=== PATIENT | male | born 1985 | race American Indian/Alaskan Native ===

== ENCOUNTER 2021-11-21 20:58 | Inpatient (IN) | payer OTHER ==
[2021-11-21] MEDS ORDERED: ALBUTEROL 2.5 MG/3 ML NEBU IH ONE (21:26)
[2021-11-21] MEDS ORDERED: IPRATROPIUM 0.02% NEBU 2.5 ML IH ONE (21:26)
[2021-11-21 21:45] LABS: Basophils # (Auto) 0.1 K/mm3 (0.0-0.1); Basophils % (Auto) 0.5 % (0.0-1.8); Eosinophils # (Auto) 0.7 K/mm3 (0.0-0.4); Eosinophils % (Auto) 5.3 % (0.0-4.3); Hematocrit 35.5 % (35.5-45.6); Hemoglobin 11.7 gm/dl (11.8-15.2); Lymphocytes # (Auto) 1.2 K/mm3 (1.2-5.4); Lymphocytes % (Auto) 9.4 % (13.4-35.0); Mean Corpuscular HGB Conc 33 % (32-34); Mean Corpuscular Volume 94 fl (84-94); Monocytes % (Auto) 8.1 % (0.0-7.3); Platelet Count 382 K/mm3 (140-440); Red Blood Count 3.76 M/mm3 (3.65-5.03); Red Cell Distribution Width 14.6 % (13.2-15.2)
[2021-11-21 21:54] LABS: INR 1.03 (0.87-1.13)
--- NOTE | 2021-11-21 22:11 | XRay Report ---
CHEST 1 VIEW INDICATION: Dyspnea. COMPARISON: 03/20/2018 FINDINGS: SUPPORT DEVICES: None. HEART: Mild cardiomegaly. LUNGS/PLEURA: Moderate patchy multifocal airspace disease in both lungs. No appreciable effusion. ADDITIONAL FINDINGS: None. IMPRESSION: 1. Lung findings as above. Signer Name: Brock Ovalles MD Signed: 11/21/2021 10:07 PM Workstation Name: [id number]
[2021-11-21 22:15] LABS: Creatine Kinase MB 4.4 ng/mL (0.0-4.0)
[2021-11-21 22:17] LABS: Albumin 3.2 g/dL (3.9-5); Calcium 8.2 mg/dL (8.4-10.2)
[2021-11-21 22:29] LABS: Chol/HDL Ratio 3.9 %
[2021-11-21] MEDS ORDERED: FUROSEMIDE 100 MG/10 ML INJ IV ONE (22:56)
[2021-11-21] MEDS ORDERED: SODIUM POLYSTYRENE 15 GM/60 ML ORAL LIQD PO ONE (22:57)
--- NOTE | 2021-11-21 23:09 | Emergency Department Report ---
ED General Adult HPI - General Chief complaint: Dyspnea/Respdistress Stated complaint: SOB PUI?: No Time Seen by Provider: 11/21/21 21:26 Source: patient Mode of arrival: Wheelchair Limitations: No Limitations - History of Present Illness Initial comments: SOB SINCE FRIDAY, STATES NO HX ASTHMA, PT REPORTS RECENT SX FOR DIALYSIS PORT ON FRIDAY ALSO. PT PULSE OX OF 85% RA AT TRIAGE, NC [address] WITH IMPROVEMENT TO 92% -: days(s) Location: chest Radiation: non-radiation Consistency: intermittent Improves with: none Worsens with: none Associated Symptoms: chest pain, cough, shortness of breath Treatments Prior to Arrival: none - Related Data Previous Rx's Medication Instructions Recorded Last Taken Type Metformin HCl [Glucophage] 500 mg PO BID #60 tablet 03/22/18 Unknown Rx NIFEdipine XL [Procardia Xl] 90 mg PO QDAY #30 tablet 03/22/18 Unknown Rx Allergies Allergy/AdvReac Type Severity Reaction Status Date / Time No Known Allergies Allergy Verified 03/21/18 04:06 ED Review of Systems ROS: Stated complaint: SOB Other details as noted in HPI Constitutional: denies: chills, fever Eyes: denies: eye pain, eye discharge, vision change ENT: denies: ear pain, throat pain Respiratory: denies: cough, shortness of breath, wheezing Cardiovascular: denies: chest pain, palpitations Endocrine: no symptoms reported Gastrointestinal: denies: abdominal pain, nausea, diarrhea Genitourinary: denies: urgency, dysuria Musculoskeletal: denies: back pain, joint swelling, arthralgia Skin: denies: rash, lesions Neurological: denies: headache, weakness, paresthesias Psychiatric: denies: anxiety, depression Hematological/Lymphatic: denies: easy bleeding, easy bruising ED Past Medical Hx - Past Medical History Hx Congestive Heart Failure: No Hx Diabetes: No Hx Pulmonary Embolism: No Hx Asthma: Yes Hx COPD: No Hx Tuberculosis: No - Social History Smoking Status: Never Smoker - Medications Home Medications: Home Medications Medication Instructions Recorded Confirmed Last Taken Type Metformin HCl [Glucophage] 500 mg PO BID #60 tablet 03/22/18 Unknown Rx NIFEdipine XL [Procardia Xl] 90 mg PO QDAY #30 tablet 03/22/18 Unknown Rx ED Physical Exam - General Limitations: No Limitations General appearance: alert, in distress - Head Head exam: Present: atraumatic, normocephalic - Eye Eye exam: Present: normal appearance - ENT ENT exam: Present: mucous membranes moist - Neck Neck exam: Present: normal inspection - Respiratory Respiratory exam: Present: rales, decreased breath sounds. Absent: respiratory distress - Cardiovascular Cardiovascular Exam: Present: regular rate, normal rhythm. Absent: systolic murmur, diastolic murmur, rubs, gallop - GI/Abdominal GI/Abdominal exam: Present: soft, normal bowel sounds - Rectal Rectal exam: Present: deferred - Extremities Exam Extremities exam: Present: normal inspection - Back Exam Back exam: Present: normal inspection - Neurological Exam Neurological exam: Present: alert, oriented X3 - Psychiatric Psychiatric exam: Present: normal affect, normal mood - Skin Skin exam: Present: warm, dry, intact, normal color. Absent: rash ED Course Vital Signs 11/21/21 11/21/21 11/21/21 21:11 21:54 22:00 Temperature 98.3 F Pulse Rate 98 H 96 H Respiratory 18 32 H 31 H Rate Blood Pressure 157/85 140/89 O2 Sat by Pulse 84 94 96 Oximetry 11/21/21 11/21/21 11/21/21 22:16 22:30 22:46 Temperature Pulse Rate 95 H 94 H 91 H Respiratory 30 H 31 H 28 H Rate Blood Pressure 142/92 148/89 132/77 O2 Sat by Pulse 98 96 96 Oximetry 11/21/21 22:56 Temperature Pulse Rate Respiratory 30 H Rate Blood Pressure O2 Sat by Pulse 96 Oximetry ED Medical Decision Making - Lab Data Result diagrams: 11/21/21 21:35 11/21/21 21:35 Critical care attestation.: If time is entered above; I have spent that time in minutes in the direct care of this critically ill patient, excluding procedure time. ED Disposition Clinical Impression: Shortness of breath, CKD (chronic kidney disease), Fluid overload Disposition: ADMITTED INPATIENT Is pt being admited?: Yes Does the pt Need Aspirin: No Condition: Stable Referrals: PRIMARY CARE, [Primary Care Provider] - 3-5 Days
[2021-11-22] MEDS ORDERED: ONDANSETRON 4 MG/2 ML INJ IV PRN ×2 (01:33→02:17)
[2021-11-22] MEDS ORDERED: ACETAMINOPHEN 325 MG TAB PO PRN ×2 (01:33→02:17)
[2021-11-22] MEDS ORDERED: MORPHINE 4 MG/1 ML INJ IV PRN (02:17)
[2021-11-22] MEDS ORDERED: MAGNESIUM HYDROXIDE (MOM) ORAL LIQD UDC PO PRN (02:17)
--- NOTE | 2021-11-22 02:25 | History and Physical Report ---
History of Present Illness Date of examination: 11/22/21 Date of admission: 11/22/2021 Chief complaint: Shortness of breath History of present illness: 36-year-old male with known history of asthma and chronic kidney disease presenting in the emergency room today with complaints of shortness of breath. He has also had some cough is nonproductive. Denies any fever, no chills, no chest pain, no headache or dizziness. Patient denies any sick contacts and no recent travel. Patient just had an AV fistula placed in the left upper arm for dialysis. Upon arrival in the emergency room today, oxygen saturation was about 85% on room air. He was subsequently placed on oxygen by nasal cannula with improvement of O2 saturation to about 92%. Work-up in the emergency room today, chest x-ray shows moderate patchy multifocal airspace disease in both lungs no appreciable effusion. Lab reveals BNP of 24,223, potassium of 5.3, total creatinine kinase of 32.4, troponin of 0.061 Past History Past Medical History: diabetes, ESRD, hypertension, other (Asthma) Past Surgical History: Other (AV fistula placement) Social history: no significant social history Family history: no significant family history Medications and Allergies Allergies Allergy/AdvReac Type Severity Reaction Status Date / Time No Known Allergies Allergy Verified 03/21/18 04:06 Home Medications Medication Instructions Recorded Confirmed Last Taken Type Metformin HCl [Glucophage] 500 mg PO BID #60 tablet 03/22/18 Unknown Rx NIFEdipine XL [Procardia Xl] 90 mg PO QDAY #30 tablet 03/22/18 Unknown Rx Active Meds: Active Medications Acetaminophen (Acetaminophen 325 Mg Tab) 650 mg PO Q4H PRN PRN Reason: Pain MILD(1-3)/Fever >100.5/HERNÁNDEZ Acetaminophen (Acetaminophen 325 Mg Tab) 650 mg PO Q4H PRN PRN Reason: Pain MILD(1-3)/Fever >100.5/HERNÁNDEZ Heparin Sodium (Porcine) (Heparin 5,000 Unit/1 Ml Vial) 5,000 unit SUB-Q Q8HR KWESI Magnesium Hydroxide (Magnesium Hydroxide (Mom) Oral Liqd Udc) 30 ml PO Q4H PRN PRN Reason: Constipation Morphine Sulfate (Morphine 2 Mg/1 Ml Inj) 2 mg IV Q4H PRN PRN Reason: Pain, Moderate (4-6) Morphine Sulfate (Morphine 4 Mg/1 Ml Inj) 4 mg IV Q4H PRN PRN Reason: Pain , Severe (7-10) Ondansetron HCl (Ondansetron 4 Mg/2 Ml Inj) 4 mg IV Q8H PRN PRN Reason: Nausea And Vomiting Ondansetron HCl (Ondansetron 4 Mg/2 Ml Inj) 4 mg IV Q8H PRN PRN Reason: Nausea And Vomiting Sodium Chloride (Sodium Chloride 0.9% 10 Ml Flush Syringe) 10 ml IV BID KWESI Sodium Chloride (Sodium Chloride 0.9% 10 Ml Flush Syringe) 10 ml IV PRN PRN PRN Reason: LINE FLUSH Sodium Chloride (Sodium Chloride 0.9% 10 Ml Flush Syringe) 10 ml IV BID KWESI Sodium Chloride (Sodium Chloride 0.9% 10 Ml Flush Syringe) 10 ml IV PRN PRN PRN Reason: LINE FLUSH Review of Systems Constitutional: no fever, no chills Ears, nose, mouth and throat: no nasal congestion, no sore throat Cardiovascular: no chest pain, no palpitations Respiratory: shortness of breath, dyspnea on exertion, no cough Gastrointestinal: no abdominal pain, no nausea, no vomiting, no diarrhea Genitourinary Male: no dysuria, no hematuria, no flank pain, no nocturia Musculoskeletal: no neck pain, no low back pain Integumentary: no rash, no pruritis Neurological: no headaches, no confusion Psychiatric: no anxiety, no depression Endocrine: no polyphagia, no polydipsia, no polyuria, no nocturia Exam - Constitutional Vitals: Temp Pulse Resp BP Pulse Ox 98.3 F 99 H 31 H 157/87 90 11/21/21 21:11 11/22/21 02:00 11/22/21 02:00 11/22/21 02:00 11/22/21 02:00 General appearance: Present: mild distress, obese - EENT Eyes: Present: PERRL, EOM intact. Absent: scleral icterus ENT: hearing intact, clear oral mucosa, dentition normal - Neck Neck: Present: supple, normal ROM, masses or JVD. Absent: carotid bruits - Respiratory Respiratory effort: labored Respiratory: bilateral: rales - Cardiovascular Rhythm: regular Heart Sounds: Present: S1 & S2. Absent: gallop, systolic murmur, diastolic murmur, rub, click - Extremities Extremities: no ischemia, pulses intact, pulses symmetrical, normal temperature, normal color, Full ROM Extremity abnormal: edema (1+ bilateral lower extremity edema) Peripheral Pulses: within normal limits - Abdominal General gastrointestinal: Present: soft, non-tender, non-distended, normal bowel sounds. Absent: mass - Integumentary Integumentary: Present: clear, warm, dry, normal turgor. Absent: rash - Musculoskeletal Musculoskeletal: strength equal bilaterally - Psychiatric Psychiatric: appropriate mood/affect, intact judgment & insight, memory intact, cooperative - Neurologic Neurologic: CNII-XII intact, no focal deficits, moves all extremities HEART Score - HEART Score Troponin: Troponin T 0.061 ng/mL (0.00-0.029) H 11/21/21 21:35 Results - Labs CBC & Chem 7: 11/21/21 21:35 11/23/21 05:20 Labs: Abnormal lab results 11/21/21 11/21/21 11/21/21 Range/Units 21:35 21:35 21:35 WBC 12.8 H (4.5-11.0) K/mm3 Hgb 11.7 L (11.8-15.2) gm/dl Lymph % (Auto) 9.4 L (13.4-35.0) % [place] % (Auto) 8.1 H (0.0-7.3) % Eos % (Auto) 5.3 H (0.0-4.3) % [place] # (Auto) 1.0 H (0.0-0.8) K/mm3 Eos # (Auto) 0.7 H (0.0-0.4) K/mm3 Seg Neutrophils % 76.7 H (40.0-70.0) % Seg Neutrophils # 9.9 H (1.8-7.7) K/mm3 Sodium 132 L (137-145) mmol/L Potassium 5.3 H (3.6-5.0) mmol/L Carbon Dioxide 15 L (22-30) mmol/L BUN 117 H (9-20) mg/dL Creatinine 12.6 H (0.8-1.3) mg/dL Glucose 134 H (75-100) mg/dL Calcium 8.2 L (8.4-10.2) mg/dL Total Creatine Kinase 3204 H (55-170) units/L CK-MB (CK-2) 4.4 H (0.0-4.0) ng/mL Troponin T 0.061 H (0.00-0.029) ng/mL NT-Pro-B Natriuret Pep 07769 H (0-450) pg/mL Albumin 3.2 L (3.9-5) g/dL Triglycerides 204 H (2-149) mg/dL Assessment and Plan Assessments: 1. End-stage renal disease 2. Volume overload 3. Hypoxia 4. Hyperkalemia 5. Hypertension 6. Diabetes mellitus Plan: 1. Patient admitted to telemetry plan 2. Consult placed to nephrology for possible dialysis 3. We will resume routine home medications once reconciled. 4. Patient placed on IV diuretics prior to dialysis. 5. Placed on sliding scale insulin and monitor Accu-Cheks. DVT prophylaxis: Subcutaneous heparin CODE STATUS: Full code
[2021-11-22] MEDS ORDERED: DEXTROSE 50% IN WATER (25GM) 50 ML SYRINGE IV PRN (02:29)
[2021-11-22 05:13] LABS: Hepatitis B Surface Antigen Non-Reactive (Negative); Hepatitis C Virus Antibody Non-Reactive (NonReactive)
[2021-11-22] MEDS: HEPARIN 5,000 UNIT/1 ML VIAL SUB-Q SCH ×3 (06:19→21:33)
--- NOTE | 2021-11-22 08:53 | Event Note ---
Date: 11/22/21 Patient followed by . Informed .
--- NOTE | 2021-11-22 09:12 | Consultation ---
History of Present Illness - Reason for Consult chronic renal failure, hyperkalemia - History of Present Illness Very pleasant morbidly obese 36-year-old -[place] male with a past medical history of advanced chronic kidney disease stage V in the setting of biopsy-proven diabetic glomerulopathy along with history of hypertension, who is well-known to our clinic as he is seen by my colleague Dr. Jaramillo, presented to the emergency department secondary to worsening shortness of breath over the last 2 to 3 days. Patient recently had an AV fistula placed on Friday. Nephrology consulted for further management. Past History Past Medical History: diabetes, ESRD, hypertension, other (Asthma) Past Surgical History: Other (AV fistula placement) Social history: no significant social history Family history: no significant family history Medications and Allergies Allergies Allergy/AdvReac Type Severity Reaction Status Date / Time No Known Allergies Allergy Verified 03/21/18 04:06 Home Medications Medication Instructions Recorded Confirmed Last Taken Type Metformin HCl [Glucophage] 500 mg PO BID #60 tablet 03/22/18 Unknown Rx NIFEdipine XL [Procardia Xl] 90 mg PO QDAY #30 tablet 03/22/18 Unknown Rx Active Meds: Active Medications Acetaminophen (Acetaminophen 325 Mg Tab) 650 mg PO Q4H PRN PRN Reason: Pain MILD(1-3)/Fever >100.5/HERNÁNDEZ Dextrose (Dextrose 50% In Water (25gm) 50 Ml Syringe) 50 ml IV Q30MIN PRN; Protocol PRN Reason: Hypoglycemia Heparin Sodium (Porcine) (Heparin 5,000 Unit/1 Ml Vial) 5,000 unit SUB-Q Q8HR KWESI Last Admin: 11/22/21 06:19 Dose: 5,000 unit Insulin Human Lispro (Insulin Lispro 100 Unit/Ml) 0 unit SUB-Q ACHS KWESI; Protoc ol Magnesium Hydroxide (Magnesium Hydroxide (Mom) Oral Liqd Udc) 30 ml PO Q4H PRN PRN Reason: Constipation Morphine Sulfate (Morphine 2 Mg/1 Ml Inj) 2 mg IV Q4H PRN PRN Reason: Pain, Moderate (4-6) Morphine Sulfate (Morphine 4 Mg/1 Ml Inj) 4 mg IV Q4H PRN PRN Reason: Pain , Severe (7-10) Ondansetron HCl (Ondansetron 4 Mg/2 Ml Inj) 4 mg IV Q8H PRN PRN Reason: Nausea And Vomiting Sodium Chloride (Sodium Chloride 0.9% 10 Ml Flush Syringe) 10 ml IV BID KWESI Sodium Chloride (Sodium Chloride 0.9% 10 Ml Flush Syringe) 10 ml IV PRN PRN PRN Reason: LINE FLUSH Review of Systems Constitutional: fatigue, weakness, poor appetite Cardiovascular: shortness of breath, dyspnea on exertion Exam - Vital Signs Vital signs: Vital Signs Temp Pulse Resp BP Pulse Ox 98.3 F 98 H 18 157/85 84 11/21/21 21:11 11/21/21 21:11 11/21/21 21:11 11/21/21 21:11 11/21/21 21:11 - General Appearance General appearance: appears stated age, obese EENT: ATNC Neck: Present: neck supple Respiratory: Decreased Breath Sounds Heart: regular Gastrointestinal: Present: normal Integumentary: warm and dry Neurologic: no focal deficit, alert and oriented x3 Musculoskeletal: Present: deferred Psychiatric: cooperative Results - Lab Results 11/21/21 21:35 11/21/21 21:35 Most recent lab results Calcium 8.2 mg/dL (8.4-10.2) L 11/21/21 21:35 Magnesium 2.00 mg/dL (1.7-2.3) 11/21/21 21:35 Assessment and Plan - Patient Problems (1) Acute kidney injury superimposed on chronic kidney disease Current Visit: Yes Status: Acute Plan to address problem: Patient has progressively worsening chronic kidney disease stage V and I am concerned that he is developing further uremic symptoms especially in the setting of his worsening shortness of breath and poor appetite. He does urinate and we will try to aggressively diurese patient as he just had an AV fistula placed. Ideally we would like to dialyze through the fistula however if there is not enough time for maturation we may need to start with permacath if symptoms continue to worsen. I have discussed this in detail with patient. We will start him on Bumex 2 mg IV daily at this time to aggressively diurese and will monitor response over the next 24 to 48 hours. (2) Fluid overload Current Visit: Yes Status: Acute Plan to address problem: Will start diuresing with Bumex 2 mg IV daily. (3) Hypertensive chronic kidney disease with stage 5 chronic kidney disease or end stage renal disease Current Visit: Yes Status: Chronic Plan to address problem: Monitor blood pressure on current regimen. We will aggressively diurese with appropriate bumetanide therapy which he is on as an outpatient. Will monitor closely. (4) Metabolic acidosis Current Visit: No Status: Chronic Plan to address problem: Restart his sodium bicarbonate 650 mg 3 times a day. (5) Type 2 diabetes mellitus with diabetic chronic kidney disease Current Visit: Yes Status: Chronic Plan to address problem: Diabetes management per primary attending
[2021-11-22] MEDS: INSULIN LISPRO 100 UNIT/ML SUB-Q SCH ×4 (10:49→21:45)
[2021-11-22] MEDS: BUMETANIDE 1 MG/4 ML INJ IV SCH (10:50)
[2021-11-22] MEDS: MORPHINE 2 MG/1 ML INJ IV PRN (13:08)
--- NOTE | 2021-11-22 13:55 | Progress Note ---
Assessment and Plan Assessment and plan: 36-year-old -[place] male with a past medical history of advanced chronic kidney disease stage V in the setting of biopsy-proven diabetic glomerulopathy along with history of hypertension, who is well-known to nephrology clinic as he is seen by Dr. Jaramillo, presented to the emergency department secondary to worsening shortness of breath over the last 2 to 3 days. Patient recently had an AV fistula placed on Friday. Nephrology consulted for further management. Acute kidney injury superimposed on chronic kidney disease stage V/ESRD Fluid overload Hypertension Diabetes mellitus type 2 11/22/2021. Patient has progressively worsening chronic kidney disease stage V. Nephrology is concerned that he is developing further uremic symptoms especially in the setting of his worsening shortness of breath and poor appetite. He does urinate and we will try to aggressively diurese patient as he just had an AV fistula placed. Ideally we would like to dialyze through the fistula however if there is not enough time for maturation we may need to start with permacath if symptoms continue to worsen. Continue Bumex 2 mg IV daily at this time to aggressively diurese and will monitor response over the next 24 to 48 hours. Continue BP medications for blood pressure control. Continue sodium bicarbonate 3 times daily. Continue Accu-Cheks and sliding scale insulin History Interval history: No new issues overnight Hospitalist Physical - Constitutional Vitals: Temp Pulse Resp BP Pulse Ox 97.7 F 95 H 20 140/79 93 11/22/21 07:22 11/22/21 07:22 11/22/21 04:59 11/22/21 07:22 11/22/21 13:45 General appearance: Present: no acute distress, obese - EENT Eyes: Present: PERRL, EOM intact ENT: hearing intact, clear oral mucosa, dentition normal - Neck Neck: Present: supple, normal ROM - Respiratory Respiratory effort: normal Respiratory: bilateral: CTA - Cardiovascular Rhythm: regular Heart Sounds: Present: S1 & S2. Absent: gallop, rub - Extremities Extremities: no ischemia, No edema, Full ROM - Abdominal General gastrointestinal: soft, non-tender, non-distended, normal bowel sounds - Integumentary Integumentary: Present: clear, warm, dry - Neurologic Neurologic: CNII-XII intact, moves all extremities HEART Score - HEART Score Troponin: Troponin T 0.061 ng/mL (0.00-0.029) H 11/21/21 21:35 Results - Labs CBC & Chem 7: 11/21/21 21:35 11/21/21 21:35 Labs: Laboratory Last Values WBC 12.8 K/mm3 (4.5-11.0) H 11/21/21 21:35 RBC 3.76 M/mm3 (3.65-5.03) 11/21/21 21:35 Hgb 11.7 gm/dl (11.8-15.2) L 11/21/21 21:35 Hct 35.5 % (35.5-45.6) 11/21/21 21:35 MCV 94 fl (84-94) 11/21/21 21:35 MCH 31 pg (28-32) 11/21/21 21:35 MCHC 33 % (32-34) 11/21/21 21:35 RDW 14.6 % (13.2-15.2) 11/21/21 21:35 Plt Count 382 K/mm3 (140-440) 11/21/21 21:35 Lymph % (Auto) 9.4 % (13.4-35.0) L 11/21/21 21:35 [place] % (Auto) 8.1 % (0.0-7.3) H 11/21/21 21:35 Eos % (Auto) 5.3 % (0.0-4.3) H 11/21/21 21:35 Baso % (Auto) 0.5 % (0.0-1.8) 11/21/21 21:35 Lymph # (Auto) 1.2 K/mm3 (1.2-5.4) 11/21/21 21:35 [place] # (Auto) 1.0 K/mm3 (0.0-0.8) H 11/21/21 21:35 Eos # (Auto) 0.7 K/mm3 (0.0-0.4) H 11/21/21 21:35 Baso # (Auto) 0.1 K/mm3 (0.0-0.1) 11/21/21 21:35 Seg Neutrophils % 76.7 % (40.0-70.0) H 11/21/21 21:35 Seg Neutrophils # 9.9 K/mm3 (1.8-7.7) H 11/21/21 21:35 PT 14.6 Sec. (12.2-14.9) 11/21/21 21:35 INR 1.03 (0.87-1.13) 11/21/21 21:35 Sodium 132 mmol/L (137-145) L 11/21/21 21:35 Potassium 5.3 mmol/L (3.6-5.0) H 11/21/21 21:35 Chloride 98.7 mmol/L (98-107) 11/21/21 21:35 Carbon Dioxide 15 mmol/L (22-30) L 11/21/21 21:35 Anion Gap 24 mmol/L 11/21/21 21:35 BUN 117 mg/dL (9-20) H 11/21/21 21:35 Creatinine 12.6 mg/dL (0.8-1.3) H 11/21/21 21:35 Estimated GFR 6 ml/min 11/21/21 21:35 BUN/Creatinine Ratio 9 % 11/21/21 21:35 Glucose 134 mg/dL (75-100) H 11/21/21 21:35 POC Glucose 129 mg/dL (70-105) H 11/22/21 13:02 Calcium 8.2 mg/dL (8.4-10.2) L 11/21/21 21:35 Magnesium 2.00 mg/dL (1.7-2.3) 11/21/21 21:35 Total Bilirubin 0.30 mg/dL (0.1-1.2) 11/21/21 21:35 AST 33 units/L (5-40) 11/21/21 21:35 ALT 14 units/L (7-56) 11/21/21 21:35 Alkaline Phosphatase 89 units/L (35-129) 11/21/21 21:35 Total Creatine Kinase 1907 units/L (55-170) H 11/22/21 03:35 CK-MB (CK-2) 4.4 ng/mL (0.0-4.0) H 11/21/21 21:35 CK-MB (CK-2) Rel Index 0.1 (0-4) 11/21/21 21:35 Troponin T 0.061 ng/mL (0.00-0.029) H 11/21/21 21:35 NT-Pro-B Natriuret Pep 13407 pg/mL (0-450) H 11/21/21 21:35 Total Protein 6.4 g/dL (6.3-8.2) 11/21/21 21:35 Albumin 3.2 g/dL (3.9-5) L 11/21/21 21:35 Albumin/Globulin Ratio 1.0 % 11/21/21 21:35 Triglycerides 204 mg/dL (2-149) H 11/21/21 21:35 Cholesterol 172 mg/dL (50-199) 11/21/21 21:35 LDL Cholesterol Direct 78 mg/dL (50-130) 11/21/21 21:35 HDL Cholesterol 44 mg/dL (40-59) 11/21/21 21:35 Cholesterol/HDL Ratio 3.90 % 11/21/21 21:35 Lipase 55 units/L (13-60) 11/21/21 21:35 Hepatitis A IgM Ab Non-reactive (NonReactive) 11/22/21 03:35 Hep Bs Antigen Non-reactive (Negative) 11/22/21 03:35 Hep B Core IgM Ab Non-reactive (NonReactive) 11/22/21 03:35 Hepatitis C Antibody Non-reactive (NonReactive) 11/22/21 03:35 Shen/IV: Voiding Method Toilet Active Medications - Current Medications Current Medications: Generic Name Dose Route Start Last Admin Trade Name Freq PRN Reason Stop Dose Admin Acetaminophen 650 mg 11/22/21 02:17 Acetaminophen 325 Mg Tab PO Q4H PRN Pain MILD(1-3)/Fever >100.5/HERNÁNDEZ Bumetanide 2 mg 11/22/21 10:00 11/22/21 10:50 Bumetanide 1 Mg/4 Ml Inj IV 12/02/21 09:59 2 mg DAILY KWESI Administration Dextrose 50 ml 11/22/21 02:29 Dextrose 50% In Water (25gm) 50 Ml Syringe IV Q30MIN PRN Hypoglycemia Protocol Heparin Sodium (Porcine) 5,000 unit 11/22/21 06:00 11/22/21 06:19 Heparin 5,000 Unit/1 Ml Vial SUB-Q 5,000 unit Q8HR KWESI Administration Insulin Human Lispro 0 unit 11/22/21 07:30 11/22/21 10:49 Insulin Lispro 100 Unit/Ml SUB-Q Not Given ACHS [facility] Protocol Magnesium Hydroxide 30 ml 11/22/21 02:17 Magnesium Hydroxide (Mom) Oral Liqd Udc PO Q4H PRN Constipation Morphine Sulfate 2 mg 11/22/21 02:17 11/22/21 13:08 Morphine 2 Mg/1 Ml Inj IV 2 mg Q4H PRN Administration Pain, Moderate (4-6) Morphine Sulfate 4 mg 11/22/21 02:17 Morphine 4 Mg/1 Ml Inj IV Q4H PRN Pain , Severe (7-10) Ondansetron HCl 4 mg 11/22/21 02:17 Ondansetron 4 Mg/2 Ml Inj IV Q8H PRN Nausea And Vomiting Sodium Chloride 10 ml 11/22/21 10:00 11/22/21 10:51 Sodium Chloride 0.9% 10 Ml Flush Syringe IV 10 ml BID KWESI Administration Sodium Chloride 10 ml 11/22/21 02:17 Sodium Chloride 0.9% 10 Ml Flush Syringe IV PRN PRN LINE FLUSH
[2021-11-23] MEDS: MORPHINE 2 MG/1 ML INJ IV PRN (04:10)
[2021-11-23] MEDS: HEPARIN 5,000 UNIT/1 ML VIAL SUB-Q SCH ×3 (05:53→21:32)
[2021-11-23 06:01] LABS: Calcium 8.2 mg/dL (8.4-10.2)
--- NOTE | 2021-11-23 08:56 | Progress Note ---
Assessment and Plan - Patient Problems (1) Acute kidney injury superimposed on chronic kidney disease Current Visit: Yes Status: Acute Plan to address problem: Patient has progressively worsening chronic kidney disease stage V and I am concerned that he is developing further uremic symptoms especially in the setting of his worsening shortness of breath and poor appetite. He does urinate and we will try to aggressively diurese patient as he just had an AV fistula placed. Ideally we would like to dialyze through the fistula however if there is not enough time for maturation we may need to start with permacath if symptoms continue to worsen. I have discussed this in detail with patient. We will start him on Bumex 2 mg IV daily at this time to aggressively diurese and will monitor response over the next 24 to 48 hours. Overall clinical status has been stable overnight and he has been diuresing well per his report. We need to be more careful with documenting his total urinary output. Will discuss with primary staff. Otherwise would continue with current regimen of Bumex. There is no acute indications for initiating hemodialysis at this present time. We will continue to monitor. Anticipate that if he clinically remained stable he likely will be able to be discharged within the next 24 hours. (2) Fluid overload Current Visit: Yes Status: Acute Plan to address problem: Will continue with diuresing with Bumex 2 mg IV daily. (3) Hypertensive chronic kidney disease with stage 5 chronic kidney disease or end stage renal disease Current Visit: Yes Status: Chronic Plan to address problem: Monitor blood pressure on current regimen. We will aggressively diurese with appropriate bumetanide therapy which he is on as an outpatient. Will monitor closely. (4) Metabolic acidosis Current Visit: No Status: Chronic Plan to address problem: Restart his sodium bicarbonate 650 mg 3 times a day. (5) Type 2 diabetes mellitus with diabetic chronic kidney disease Current Visit: Yes Status: Chronic Plan to address problem: Diabetes management per primary attending Subjective Date of service: 11/23/21 Interval history: No acute events overnight. Patient is diuresing well. Discussed with staff about monitoring and documenting strict intake and output. Respiratory status is stable this morning. Patient states that his shortness of breath is improving. We will continue with aggressive diuresis with Bumex at this time. Labs reviewed and no other clinical indications for urgent hemodialysis initiation at this time. Objective - Vital Signs Vital signs: Vital Signs - 12hr 11/23/21 00:00 Respiratory 20 Rate O2 Sat by Pulse 96 Oximetry - General Appearance General appearance: well-developed, appears stated age, obese EENT: ATNC Neck: no JVD Respiratory: Present: Decreased Breath Sounds Cardiology: regular, S1S2 Gastrointestinal: normal Integumentary: no rash, warm and dry Neurologic: no focal deficit, alert and oriented x3 Musculoskeletal: deferred Psychiatric: mood/affect appropriate, cooperative - Lab 11/21/21 21:35 11/23/21 05:20 Most recent lab results Calcium 8.2 mg/dL (8.4-10.2) L 11/23/21 05:20 Magnesium 2.00 mg/dL (1.7-2.3) 11/21/21 21:35 - Allied health notes Allied health notes reviewed: nursing Medications & Allergies - Medications Allergies/Adverse Reactions: Allergies No Known Allergies Allergy (Verified 03/21/18 04:06) Home Medications: Home Medications Medication Instructions Recorded Confirmed Last Taken Type Metformin HCl [Glucophage] 500 mg PO BID #60 tablet 03/22/18 Unknown Rx NIFEdipine XL [Procardia Xl] 90 mg PO QDAY #30 tablet 03/22/18 Unknown Rx Active Medications: Generic Name Dose Route Start Last Admin Trade Name Freq PRN Reason Stop Dose Admin Acetaminophen 650 mg 11/22/21 02:17 Acetaminophen 325 Mg Tab PO Q4H PRN Pain MILD(1-3)/Fever >100.5/HERNÁNDEZ Bumetanide 2 mg 11/22/21 10:00 11/22/21 10:50 Bumetanide 1 Mg/4 Ml Inj IV 12/02/21 09:59 2 mg DAILY KWESI Administration Dextrose 50 ml 11/22/21 02:29 Dextrose 50% In Water (25gm) 50 Ml Syringe IV Q30MIN PRN Hypoglycemia Protocol Heparin Sodium (Porcine) 5,000 unit 11/22/21 06:00 11/23/21 05:53 Heparin 5,000 Unit/1 Ml Vial SUB-Q 5,000 unit Q8HR KWESI Administration Insulin Human Lispro 0 unit 11/22/21 07:30 11/22/21 21:45 Insulin Lispro 100 Unit/Ml SUB-Q Not Given ACHS KWESI Protocol Magnesium Hydroxide 30 ml 11/22/21 02:17 Magnesium Hydroxide (Mom) Oral Liqd Udc PO Q4H PRN Constipation Morphine Sulfate 2 mg 08/18/22 02:17 11/23/21 04:10 Morphine 2 Mg/1 Ml Inj IV 2 mg Q4H PRN Administration Pain, Moderate (4-6) Morphine Sulfate 4 mg 11/22/21 02:17 Morphine 4 Mg/1 Ml Inj IV Q4H PRN Pain , Severe (7-10) Ondansetron HCl 4 mg 11/22/21 02:17 Ondansetron 4 Mg/2 Ml Inj IV Q8H PRN Nausea And Vomiting Sodium Bicarbonate 650 mg 11/23/21 14:00 Sodium Bicarbonate 650 Mg Tab PO TID KWESI Sodium Chloride 10 ml 11/22/21 10:00 11/22/21 21:33 Sodium Chloride 0.9% 10 Ml Flush Syringe IV 10 ml BID KWESI Administration Sodium Chloride 10 ml 11/22/21 02:17 Sodium Chloride 0.9% 10 Ml Flush Syringe IV PRN PRN LINE FLUSH
[2021-11-23] MEDS: BUMETANIDE 1 MG/4 ML INJ IV SCH (09:35)
[2021-11-23] MEDS: INSULIN LISPRO 100 UNIT/ML SUB-Q SCH ×4 (09:36→21:38)
--- NOTE | 2021-11-23 11:26 | Progress Note ---
Assessment and Plan Assessment and plan: 36-year-old -Citizen Of [place] male with a past medical history of advanced chronic kidney disease stage V in the setting of biopsy-proven diabetic glomerulopathy along with history of hypertension, who is well-known to nephrology clinic as he is seen by Dr. Jaramillo, presented to the emergency department secondary to worsening shortness of breath over the last 2 to 3 days. Patient recently had an AV fistula placed on Friday. Nephrology consulted for further management. Acute kidney injury superimposed on chronic kidney disease stage V/ESRD Fluid overload Hypertension Diabetes mellitus type 2 11/22/2021. Patient has progressively worsening chronic kidney disease stage V. Nephrology is concerned that he is developing further uremic symptoms especially in the setting of his worsening shortness of breath and poor appetite. He does urinate and we will try to aggressively diurese patient as he just had an AV fistula placed. Ideally we would like to dialyze through the fistula however if there is not enough time for maturation we may need to start with permacath if symptoms continue to worsen. Continue Bumex 2 mg IV daily at this time to aggressively diurese and will monitor response over the next 24 to 48 hours. Continue BP medications for blood pressure control. Continue sodium bicarbonate 3 times daily. Continue Accu-Cheks and sliding scale insulin 11/23/2021. Nephrology reports patient has had good diuresis since admission. Continue Bumex and there is no acute indication for initiating hemodialysis per nephrology at this time. If patient continues to remain stable, anticipate discharge in a.m. History Interval history: No new issues overnight Hospitalist Physical - Constitutional Vitals: Temp Pulse Resp BP Pulse Ox 98.2 F 99 H 19 190/99 92 11/23/21 08:17 11/23/21 08:17 11/23/21 08:17 11/23/21 08:17 11/23/21 08:17 General appearance: Present: no acute distress, obese - EENT Eyes: Present: PERRL, EOM intact ENT: hearing intact, clear oral mucosa, dentition normal - Neck Neck: Present: supple, normal ROM - Respiratory Respiratory effort: normal Respiratory: bilateral: CTA - Cardiovascular Rhythm: regular Heart Sounds: Present: S1 & S2. Absent: gallop, rub - Extremities Extremities: no ischemia, No edema, Full ROM - Abdominal General gastrointestinal: soft, non-tender, non-distended, normal bowel sounds - Integumentary Integumentary: Present: clear, warm, dry - Neurologic Neurologic: CNII-XII intact, moves all extremities HEART Score - HEART Score Troponin: Troponin T 0.061 ng/mL (0.00-0.029) H 11/21/21 21:35 Results - Labs CBC & Chem 7: 11/21/21 21:35 11/23/21 05:20 Labs: Laboratory Last Values WBC 12.8 K/mm3 (4.5-11.0) H 11/21/21 21:35 RBC 3.76 M/mm3 (3.65-5.03) 11/21/21 21:35 Hgb 11.7 gm/dl (11.8-15.2) L 11/21/21 21:35 Hct 35.5 % (35.5-45.6) 11/21/21 21:35 MCV 94 fl (84-94) 11/21/21 21:35 MCH 31 pg (28-32) 11/21/21 21:35 MCHC 33 % (32-34) 11/21/21 21:35 RDW 14.6 % (13.2-15.2) 11/21/21 21:35 Plt Count 382 K/mm3 (140-440) 11/21/21 21:35 Lymph % (Auto) 9.4 % (13.4-35.0) L 11/21/21 21:35 [place] % (Auto) 8.1 % (0.0-7.3) H 11/21/21 21:35 Eos % (Auto) 5.3 % (0.0-4.3) H 11/21/21 21:35 Baso % (Auto) 0.5 % (0.0-1.8) 11/21/21 21:35 Lymph # (Auto) 1.2 K/mm3 (1.2-5.4) 11/21/21 21:35 [place] # (Auto) 1.0 K/mm3 (0.0-0.8) H 11/21/21 21:35 Eos # (Auto) 0.7 K/mm3 (0.0-0.4) H 11/21/21 21:35 Baso # (Auto) 0.1 K/mm3 (0.0-0.1) 11/21/21 21:35 Seg Neutrophils % 76.7 % (40.0-70.0) H 11/21/21 21:35 Seg Neutrophils # 9.9 K/mm3 (1.8-7.7) H 11/21/21 21:35 PT 14.6 Sec. (12.2-14.9) 11/21/21 21:35 INR 1.03 (0.87-1.13) 11/21/21 21:35 Sodium 138 mmol/L (137-145) 11/23/21 05:20 Potassium 5.3 mmol/L (3.6-5.0) H 11/23/21 05:20 Chloride 104.6 mmol/L (98-107) 11/23/21 05:20 Carbon Dioxide 14 mmol/L (22-30) L 11/23/21 05:20 Anion Gap 25 mmol/L 11/23/21 05:20 BUN 117 mg/dL (9-20) H 11/23/21 05:20 Creatinine 11.6 mg/dL (0.8-1.3) H 11/23/21 05:20 Estimated GFR 6 ml/min 11/23/21 05:20 BUN/Creatinine Ratio 10 % 11/23/21 05:20 Glucose 113 mg/dL (75-100) H 11/23/21 05:20 POC Glucose 118 mg/dL (70-105) H 11/22/21 21:43 Calcium 8.2 mg/dL (8.4-10.2) L 11/23/21 05:20 Magnesium 2.00 mg/dL (1.7-2.3) 11/21/21 21:35 Total Bilirubin 0.30 mg/dL (0.1-1.2) 11/21/21 21:35 AST 33 units/L (5-40) 11/21/21 21:35 ALT 14 units/L (7-56) 11/21/21 21:35 Alkaline Phosphatase 89 units/L (35-129) 11/21/21 21:35 Total Creatine Kinase 1907 units/L (55-170) H 11/22/21 03:35 CK-MB (CK-2) 4.4 ng/mL (0.0-4.0) H 11/21/21 21:35 CK-MB (CK-2) Rel Index 0.1 (0-4) 11/21/21 21:35 Troponin T 0.061 ng/mL (0.00-0.029) H 11/21/21 21:35 NT-Pro-B Natriuret Pep 70528 pg/mL (0-450) H 11/21/21 21:35 Total Protein 6.4 g/dL (6.3-8.2) 11/21/21 21:35 Albumin 3.2 g/dL (3.9-5) L 11/21/21 21:35 Albumin/Globulin Ratio 1.0 % 11/21/21 21:35 Triglycerides 204 mg/dL (2-149) H 11/21/21 21:35 Cholesterol 172 mg/dL (50-199) 11/21/21 21:35 LDL Cholesterol Direct 78 mg/dL (50-130) 11/21/21 21:35 HDL Cholesterol 44 mg/dL (40-59) 11/21/21 21:35 Cholesterol/HDL Ratio 3.90 % 11/21/21 21:35 Lipase 55 units/L (13-60) 11/21/21 21:35 Hepatitis A IgM Ab Non-reactive (NonReactive) 11/22/21 03:35 Hep Bs Antigen Non-reactive (Negative) 11/22/21 03:35 Hep B Core IgM Ab Non-reactive (NonReactive) 11/22/21 03:35 Hepatitis C Antibody Non-reactive (NonReactive) 11/22/21 03:35 Shen/IV: Voiding Method Toilet Active Medications - Current Medications Current Medications: Generic Name Dose Route Start Last Admin Trade Name Freq PRN Reason Stop Dose Admin Acetaminophen 650 mg 11/22/21 02:17 Acetaminophen 325 Mg Tab PO Q4H PRN Pain MILD(1-3)/Fever >100.5/HERNÁNDEZ Bumetanide 2 mg 11/22/21 10:00 11/23/21 09:35 Bumetanide 1 Mg/4 Ml Inj IV 12/02/21 09:59 2 mg DAILY KWESI Administration Dextrose 50 ml 11/22/21 02:29 Dextrose 50% In Water (25gm) 50 Ml Syringe IV Q30MIN PRN Hypoglycemia Protocol Heparin Sodium (Porcine) 5,000 unit 11/22/21 06:00 11/23/21 05:53 Heparin 5,000 Unit/1 Ml Vial SUB-Q 5,000 unit Q8HR KWESI Administration Insulin Human Lispro 0 unit 11/22/21 07:30 11/23/21 09:36 Insulin Lispro 100 Unit/Ml SUB-Q Not Given ACHS [facility] Protocol Magnesium Hydroxide 30 ml 11/22/21 02:17 Magnesium Hydroxide (Mom) Oral Liqd Udc PO Q4H PRN Constipation Morphine Sulfate 2 mg 11/22/21 02:17 11/23/21 04:10 Morphine 2 Mg/1 Ml Inj IV 2 mg Q4H PRN Administration Pain, Moderate (4-6) Morphine Sulfate 4 mg 11/22/21 02:17 Morphine 4 Mg/1 Ml Inj IV Q4H PRN Pain , Severe (7-10) Ondansetron HCl 4 mg 11/22/21 02:17 Ondansetron 4 Mg/2 Ml Inj IV Q8H PRN Nausea And Vomiting Sodium Bicarbonate 650 mg 11/23/21 14:00 Sodium Bicarbonate 650 Mg Tab PO TID KWESI Sodium Chloride 10 ml 11/22/21 10:00 11/23/21 09:38 Sodium Chloride 0.9% 10 Ml Flush Syringe IV 10 ml BID KWESI Administration Sodium Chloride 10 ml 11/22/21 02:17 Sodium Chloride 0.9% 10 Ml Flush Syringe IV PRN PRN LINE FLUSH Nutrition/Malnutrition Assess - Dietary Evaluation Nutrition/Malnutrition Findings: Nutrition Notes Start: 11/22/21 17:01 Freq: Status: Active Protocol: Document 11/22/21 17:01 NICHOLE (Rec: 11/22/21 17:15 NICHOLE [id number]) Nutrition Notes Need for Assessment generated from: MD Order,Education Initial or Follow up Brief Note Current Diagnosis Acute Kidney Injury,CKD (stage V CKD),Diabetes,Hypertension, Respiratory Failure Other Pertinent Diagnosis ESRD Needs HD, Fluid Overload, Metabolic Acidosis, SOB, Asthma. Current Diet Renal Diet (since B 11/22). 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 Weight Status Morbidly Obese Subjective/Other Information RD consult for nutrition education assessment. No reports available on Pt's PO intake of meals at the time , will assess at F/U. Pt is on Nasal Cannula, O2 saturation @ 96%, according to Physical Assessment History notes. Pt is not a New Onset Diabetes Pt, not a subject for nutrition education. Percent of energy/protein needs met: Prescribed Renal Diet provides for energy/protein needs (2, 072 Kcal/77 g) during LOS. Nutrition Intervention Follow-Up By: 11/29/21 Additional Comments Continue monitoring food tolerance, %PO intake of meals , and BM.
[2021-11-23] MEDS: SODIUM BICARBONATE 650 MG TAB PO SCH ×2 (16:46→21:31)
[2021-11-23 20:29] VITALS: BP 158/86
--- NOTE | 2021-11-23 22:18 | Electrocardiograph Report ---
[facility] Test Date: 2021-11-22 Test Time: 08:28:42 Pat Name: TYRONE LAO Department: Room: A489 Gender: M Travel Professional: ERIN : [id number] Requested By: JEFF SUN Order Number: [id number] Reading MD: Krysta Bran Measurements Intervals [place] Rate: 92 P: 11 [place]: 151 QRS: -32 QRSD: 84 T: 74 QT: 377 QTc: 467 Interpretive Statements Sinus rhythm Left axis deviation Nonspecific T abnormalities, lateral leads No previous ECG available for comparison Electronically Signed On 11-23-2021 22:17:53 EDT by Krysta Bran
[2021-11-24] MEDS: HEPARIN 5,000 UNIT/1 ML VIAL SUB-Q SCH (05:58)
--- NOTE | 2021-11-24 07:31 | Progress Note ---
Assessment and Plan - Patient Problems (1) Acute kidney injury superimposed on chronic kidney disease Current Visit: Yes Status: Acute Plan to address problem: Patient has progressively worsening chronic kidney disease stage V and I am concerned that he is developing further uremic symptoms especially in the setting of his worsening shortness of breath and poor appetite. He does urinate and we will try to aggressively diurese patient as he just had an AV fistula placed. Ideally we would like to dialyze through the fistula however if there is not enough time for maturation we may need to start with permacath if symptoms continue to worsen. I have discussed this in detail with patient. Overall clinical status has been stable overnight and he has been diuresing well per his report. Will transition to po bumex. There is no acute indications for initiating hemodialysis at this present time, pt is clinically stable. He can be discharged from renal stand point with outpatient CKD f/u in 1 week in our office. (2) Fluid overload Current Visit: Yes Status: Acute Plan to address problem: Will continue with diuresing with Bumex 2 mg po bid (3) Hypertensive chronic kidney disease with stage 5 chronic kidney disease or end stage renal disease Current Visit: Yes Status: Chronic Plan to address problem: Monitor blood pressure on current regimen. We will aggressively diurese with appropriate bumetanide therapy which he is on as an outpatient. Will monitor closely. (4) Metabolic acidosis Current Visit: No Status: Chronic Plan to address problem: Restart his sodium bicarbonate 650 mg 3 times a day. (5) Type 2 diabetes mellitus with diabetic chronic kidney disease Current Visit: Yes Status: Chronic Plan to address problem: Diabetes management per primary attending Subjective Date of service: 11/24/21 Principal diagnosis: RAD Interval history: Patient is awake, alert, denies CP, SOB, n/v/d/ dysuria, abd pain, fever, chills Objective - Vital Signs Vital signs: Vital Signs - 12hr 11/23/21 11/23/21 11/23/21 19:55 20:06 20:29 Temperature 98.5 F Pulse Rate 92 H 107 H Respiratory 20 Rate Blood Pressure 158/86 O2 Sat by Pulse 91 91 Oximetry 11/23/21 22:00 Temperature Pulse Rate Respiratory Rate Blood Pressure O2 Sat by Pulse 92 Oximetry - General Appearance General appearance: well-developed, well-nourished, appears stated age, obese EENT: ATNC, PERRL, mucous membranes moist Neck: no JVD Respiratory: Present: Clear to Ascultation Cardiology: regular, S1S2 Gastrointestinal: normoactive bowel sounds, obese Integumentary: no rash Neurologic: no focal deficit, alert and oriented x3, strength 5/5, CN 3-12 intact Psychiatric: mood/affect appropriate, cooperative - Lab 11/21/21 21:35 11/23/21 05:20 Most recent lab results Calcium 8.2 mg/dL (8.4-10.2) L 11/23/21 05:20 Magnesium 2.00 mg/dL (1.7-2.3) 11/21/21 21:35 Medications & Allergies - Medications Allergies/Adverse Reactions: Allergies No Known Allergies Allergy (Verified 03/21/18 04:06) Home Medications: Home Medications Medication Instructions Recorded Confirmed Last Taken Type Metformin HCl [Glucophage] 500 mg PO BID #60 tablet 03/22/18 Unknown Rx NIFEdipine XL [Procardia Xl] 90 mg PO QDAY #30 tablet 03/22/18 Unknown Rx Active Medications: Generic Name Dose Route Start Last Admin Trade Name Freq PRN Reason Stop Dose Admin Acetaminophen 650 mg 11/22/21 02:17 11/23/21 21:41 Acetaminophen 325 Mg Tab PO 650 mg Q4H PRN Administration Pain MILD(1-3)/Fever >100.5/HERNÁNDEZ Bumetanide 2 mg 11/22/21 10:00 11/23/21 09:35 Bumetanide 1 Mg/4 Ml Inj IV 12/02/21 09:59 2 mg DAILY KWESI Administration Dextrose 50 ml 11/22/21 02:29 Dextrose 50% In Water (25gm) 50 Ml Syringe IV Q30MIN PRN Hypoglycemia Protocol Heparin Sodium (Porcine) 5,000 unit 11/22/21 06:00 11/24/21 05:58 Heparin 5,000 Unit/1 Ml Vial SUB-Q 5,000 unit Q8HR KWESI Administration Insulin Human Lispro 0 unit 11/22/21 07:30 11/23/21 21:38 Insulin Lispro 100 Unit/Ml SUB-Q Not Given ACHS KWESI Protocol Magnesium Hydroxide 30 ml 11/22/21 02:17 Magnesium Hydroxide (Mom) Oral Liqd Udc PO Q4H PRN Constipation Morphine Sulfate 2 mg 11/22/21 02:17 11/23/21 04:10 Morphine 2 Mg/1 Ml Inj IV 2 mg Q4H PRN Administration Pain, Moderate (4-6) Morphine Sulfate 4 mg 11/22/21 02:17 Morphine 4 Mg/1 Ml Inj IV Q4H PRN Pain , Severe (7-10) Ondansetron HCl 4 mg 11/22/21 02:17 Ondansetron 4 Mg/2 Ml Inj IV Q8H PRN Nausea And Vomiting Sodium Bicarbonate 650 mg 11/23/21 14:00 11/23/21 21:31 Sodium Bicarbonate 650 Mg Tab PO 650 mg TID KWESI Administration Sodium Chloride 10 ml 11/22/21 10:00 11/23/21 21:32 Sodium Chloride 0.9% 10 Ml Flush Syringe IV 10 ml BID KWESI Administration Sodium Chloride 10 ml 11/22/21 02:17 Sodium Chloride 0.9% 10 Ml Flush Syringe IV PRN PRN LINE FLUSH
[2021-11-24] MEDS: INSULIN LISPRO 100 UNIT/ML SUB-Q SCH ×2 (08:13→12:20)
--- NOTE | 2021-11-24 08:49 | Discharge Summary ---
Providers - Providers Date of Admission: 11/22/21 02:17 Date of discharge: 11/24/21 Attending physician: SUNNY BARBA 11/21/21 22:57 Consult to Physician [CONS] Stat Comment: Consulting Provider: SANYA GANT Physician Instructions: Reason For Exam: fluids overlaod 11/22/21 02:29 Consult to Dietitian/Nutrition [CONS] Routine Physician Instructions: Reason For Exam: Reason for Consult: Diet education Primary care physician: CERTIFIED EXECUTIVE [employer]F Hospitalization Reason for admission: CKD Condition: Stable Hospital course: 36-year-old -[place] male with a past medical history of advanced chronic kidney disease stage V in the setting of biopsy-proven diabetic glomerulopathy along with history of hypertension, who is well-known to nephrology clinic as he is seen by Dr. Jaramillo, presented to the emergency department secondary to worsening shortness of breath over the last 2 to 3 days. Patient recently had an AV fistula placed on Friday. Nephrology consulted for further management. The patient was admitted with diagnosis below Acute kidney injury superimposed on chronic kidney disease stage V/ESRD Fluid overload Hypertension Diabetes mellitus type 2 11/22/2021. Patient has progressively worsening chronic kidney disease stage V. Nephrology is concerned that he is developing further uremic symptoms especially in the setting of his worsening shortness of breath and poor appetite. He does urinate and we will try to aggressively diurese patient as he just had an AV fistula placed. Ideally we would like to dialyze through the fistula however if there is not enough time for maturation we may need to start with permacath if symptoms continue to worsen. Continue Bumex 2 mg IV daily at this time to aggressively diurese and will monitor response over the next 24 to 48 hours. Continue BP medications for blood pressure control. Continue sodium bicarbonate 3 times daily. Continue Accu-Cheks and sliding scale insulin 11/23/2021. Nephrology reports patient has had good diuresis since admission. Continue Bumex and there is no acute indication for initiating hemodialysis per nephrology at this time. If patient continues to remain stable, anticipate discharge in a.m. 11/24/2021. Overall clinical status has been stable overnight and he has been diuresing well per his report. Nephrology transitioned the patient to po bumex. There is no acute indication for initiating hemodialysis at this present time, pt is clinically stable. The patient is felt to receive maximal hospital benefit and will need follow-up with outpatient CKD f/u in 1 week. Dedicated discharge time 34 minutes Disposition: 01 HOME / SELF CARE / HOMELESS Final Discharge Diagnosis (Prints w/discharge instructions): Acute kidney injury superimposed on chronic kidney disease stage V/ESRD. Fluid overload. Hypertension. Diabetes mellitus type 2 Core Measure Documentation - Palliative Care Palliative Care/ Comfort Measures: Not Applicable - Core Measures Any of the following diagnoses?: none Exam - Constitutional Vitals: Temp Pulse Resp BP Pulse Ox 98.5 F 107 H 20 158/86 92 11/23/21 19:55 11/23/21 20:06 11/23/21 19:55 11/23/21 19:55 11/23/21 22:00 General appearance: Present: no acute distress, well-nourished - EENT Eyes: Present: PERRL ENT: hearing intact, clear oral mucosa - Neck Neck: Present: supple, normal ROM - Respiratory Respiratory effort: normal Respiratory: bilateral: CTA - Cardiovascular Heart Sounds: Present: S1 & S2. Absent: rub, click - Extremities Extremities: pulses symmetrical, No edema Peripheral Pulses: within normal limits - Abdominal General gastrointestinal: Present: soft, non-tender, non-distended, normal bowel sounds Male genitourinary: Present: normal - Integumentary Integumentary: Present: clear, warm, dry - Musculoskeletal Musculoskeletal: gait normal, strength equal bilaterally - Psychiatric Psychiatric: appropriate mood/affect, intact judgment & insight - Neurologic Neurologic: CNII-XII intact, moves all extremities Plan Activity: advance as tolerated Weight Bearing Status: Weight Bear as Tolerated Diet: renal Follow up with: PRIMARY CARE, [Primary Care Provider] - 3-5 Days Prescriptions: Bumetanide [Bumex 1 mg tab] 2 mg PO 0600,1800 #60 tablet NIFEdipine XL [Procardia Xl] 90 mg PO QDAY #30 tablet Sodium Bicarbonate 650 mg PO TID #90 tablet
[2021-11-24] MEDS: SODIUM BICARBONATE 650 MG TAB PO SCH (09:19)
[2021-11-24] MEDS ORDERED: BUMETANIDE 1 MG TAB PO SCH (18:00)
== END 2021-11-24 12:44 | disposition home or self-care (01) | DRG 640 ==
LOC: ED 20:58 → 4A 11-22 02:17
PROVIDERS: ADMIT Internal Medicine Geriatric Medicine; ATTEND Hospitalist
DX: E87.70 Fluid overload, unspecified (principal); N18.6 End stage renal disease; I12.0 Hypertensive chronic kidney disease with stage 5 chronic kidney disease or end stage renal disease; N17.9 Acute kidney failure, unspecified; E87.5 Hyperkalemia; Z20.822 Contact with and (suspected) exposure to COVID-19; J45.909 Unspecified asthma, uncomplicated; E11.22 Type 2 diabetes mellitus with diabetic chronic kidney disease; Z99.2 Dependence on renal dialysis; Z79.84 Long term (current) use of oral hypoglycemic drugs; E66.01 Morbid (severe) obesity due to excess calories; E87.2 Acidosis
CPT/HCPCS: 36415; 71045; 80048; 80053; 80061; 80074; 82550; 82553; 82962; 83690; 83735; 83880; 84484; 85025; 85610; 87641; 93005; 94760; 99285; G0378; J3490; J1644; J1940; J2270; U0003